=== PATIENT | male | born 1985 | race Two or more races ===

== ENCOUNTER 2019-11-30 02:46 | Emergency (ER) | payer OTHER ==
[~2019-11-30] VITALS: Ht 180.3 cm; Wt 122.5 kg
[2019-11-30] MEDS ORDERED: COZAAR25 MG (02:53)
[2019-11-30] MEDS ORDERED: FORTAMET1000 MG (02:53)
[2019-11-30] MEDS ORDERED: NORVASC5 MG (02:53)
[2019-11-30] MEDS ORDERED: LANTUS SOL100 UNIT/1 (02:54)
[2019-11-30] MEDS ORDERED: TOPROL XL100 M1 (02:54)
== END 2019-11-30 11:28 | disposition home or self-care (01) ==
LOC: ER 02:46
DX: L03.116 Cellulitis of left lower limb (principal)